=== PATIENT | male | born 2000 | race Caucasian/White ===

== ENCOUNTER 2021-05-14 10:55 | Emergency (ER) | payer OTHER, SELFPAY ==
[2021-05-14 11:16] VITALS: BP 130/80; PULSE 85; RESP 18; TEMP 37.1; O2SAT 98
--- NOTE | 2021-05-14 11:29 | ED.URI ---
HPI - URI/Sore Throat General Chief Complaint: Upper Respiratory Infection Stated Complaint: sorethroat,runny nose Time Seen by Provider: 05/14/21 11:29 Source: patient and RN notes reviewed Mode of arrival: ambulatory Limitations: no limitations History of Present Illness HPI Narrative: Patrick is a 20-year-old male patient who ambulated into the [facility] accompanied by his mother. Patient has a 3-day history of sore throat, runny nose, and chills. Patient has been vaccinated for Covid. Patient denies any exposure but does state he goes out frequently without a mask. Mother states he has had a fever at home. MD elicited complaint: sore throat Related Data Allergies Allergy/AdvReac Type Severity Reaction Status Date / Time No Known Allergies Allergy Verified 05/14/21 11:44 Review of Systems Review of Systems: CONSTITUTIONAL: Denies body aches, fever, +chills, + sweats. EYES: Denies visual changes, redness, or discharge. ENT: Denies rhinorrhea,+ congestion, +sore throat, or otalgia. CARDIOVASCULAR: Denies chest pain, palpitations, or edema. RESPIRATORY: Denies cough or dyspnea. GASTROINTESTINAL: Denies abdominal pain, nausea, vomiting, or diarrhea. GENITOURINARY: Denies dysuria or hematuria. SKIN: Denies rash, itching, or wounds. MUSCULOSKELETAL: Denies back pain, joint pain, or myalgia. NEUROLOGIC: Denies headache, numbness, tingling, or weakness. PSYCH: Denies depression or anxiety. All systems reviewed & are unremarkable except as noted in HPI and below PMFSH Comments At time of signature, I have reviewed and agree with nursing past medical, surgical, social and family history unless otherwise noted. Please see nursing chart for further information. There is no relevant family history pertinent to the presenting complaint Exam Narrative: GENERAL: Well-appearing, well-nourished, and in no acute distress. HEAD: Normocephalic, atraumatic. EYES: EOMI. No redness or drainage. Conjunctivae normal. ENT: Mucous membranes pink and moist. Nares clear. No rhinorrhea. Bilateral tympanic membranes are dull with moderate bulging. Posterior pharynx is erythemic with moderate amount of edema. Tonsils are 4+. Without exudate. Uvula midline. NECK: Normal AROM. Supple. bilateral anterior cervical lymphadenopathy. CHEST: No respiratory distress. Clear to auscultation. MUSCULOSKELETAL: No bony tenderness. EXTREMITIES: Normal range of motion. No edema. SKIN: Warm, dry, no rash. Capillary refill normal. Normal skin turgor. NEURO: No focal deficits. Alert and oriented x3. Gait steady. PSYCH: Normal affect. No signs of depression or anxiety. Course Vital Signs Vital signs: Vital Signs Temperature 37.1 C 05/14/21 11:16 Pulse Rate 85 05/14/21 11:16 Respiratory Rate 18 05/14/21 11:16 Blood Pressure 130/80 05/14/21 11:16 Pulse Oximetry 98 05/14/21 11:16 Temperature 37.1 C 05/14/21 11:16 Pulse Rate 85 05/14/21 11:16 Respiratory Rate 18 05/14/21 11:16 Blood Pressure 130/80 05/14/21 11:16 Pulse Oximetry 98 05/14/21 11:16 Reviewed. Pt has been instructed to follow up with his PCP regarding his elevated blood pressure today. MDM - URI/Sore Throat MDM Narrative Medical decision making narrative: Patient has sore throat, chills, runny nose. Patient will be evaluated for strep and Covid. Differential Diagnosis Differential diagnosis: Likely upper respiratory infection, otitis media, sinusitis, viral infection and bronchitis Medical Records Attestation: I reviewed the patient's medical records. Lab Data Attestation: I reviewed the patient's lab results. Labs: Strep Screen Presumptive Negative *(Reference Range: Negative)* Critical Care Time Critical Care Time Critical Care Time: No Discharge Plan Discharge Clinical Impression: Pharyngitis Qualifiers: Pharyngitis/tonsillitis etiology: unspecified etiology Qualified Code(s
== END 2021-05-14 12:11 | disposition home or self-care (01) ==
PROVIDERS: Emergency Provider Nurse Practitioner Family; PCP Pediatrics
DX: J02.9 Acute pharyngitis, unspecified (principal)
CPT/HCPCS: 87081; 87426; 87880; 99213; C9803; G0463

== ENCOUNTER 2021-07-03 12:02 | Emergency (ER) | payer OTHER, SELFPAY ==
[2021-07-03 13:34] VITALS: BP 130/74; PULSE 105; RESP 18; TEMP 37.3; O2SAT 100
--- NOTE | 2021-07-03 15:12 | ED.URI ---
HPI - URI/Sore Throat General Chief Complaint: Upper Respiratory Infection Stated Complaint: headache,cough Time Seen by Provider: 07/03/21 14:57 Source: patient and RN notes reviewed Mode of arrival: ambulatory Limitations: no limitations History of Present Illness HPI Narrative: Patient presents today complaining of sore throat, fever up to 100, chills, body aches, headache since yesterday. Currently rates his pain 4/10 and has tried no medication for symptoms prior to arrival. MD elicited complaint: fever and sore throat Related Data Home Medications Medication Instructions Recorded Confirmed aluminum chloride [Drysol 1 TOPICAL DIRECTED 07/03/21 Dab-O-Matic] Allergies Allergy/AdvReac Type Severity Reaction Status Date / Time No Known Allergies Allergy Verified 07/03/21 14:39 Review of Systems Review of Systems: CONSTITUTIONAL: Denies sweats.+ Body aches, fever, chills EYES: Denies visual changes, redness, or discharge. ENT: Denies rhinorrhea, congestion, or otalgia.+ Sore throat CARDIOVASCULAR: Denies chest pain, palpitations, or edema. RESPIRATORY: Denies cough or dyspnea. GASTROINTESTINAL: Denies abdominal pain, nausea, vomiting, or diarrhea. GENITOURINARY: Denies dysuria or hematuria. SKIN: Denies rash, itching, or wounds. MUSCULOSKELETAL: Denies back pain, joint pain, or myalgia. NEUROLOGIC: Denies numbness, tingling, or weakness.+ Headache PSYCH: Denies depression or anxiety. PMFSH Comments At time of signature, I have reviewed and agree with nursing past medical, surgical, social and family history unless otherwise noted. Please see nursing chart for further information. There is no relevant family history pertinent to the presenting complaint Exam Narrative: GENERAL: Well-appearing, well-nourished, and in no acute distress. HEAD: Normocephalic, atraumatic. EYES: EOMI. No redness or drainage. Conjunctivae normal. ENT: Mucous membranes pink and moist. Nares clear. No rhinorrhea. TMs normal bilaterally. Throat normal. Uvula midline. NECK: Normal AROM. Supple. No lymphadenopathy. CHEST: No respiratory distress. Clear to auscultation. HEART: Regular rate and rhythm. No murmur appreciated. Normal peripheral pulses. EXTREMITIES: Normal range of motion. No edema. SKIN: Warm, dry, no rash. Capillary refill normal. Normal skin turgor. NEURO: No focal deficits. Alert and oriented x3. Gait steady. PSYCH: Normal affect. No signs of depression or anxiety. Course Course Level of Care: Express Care Visit Vital Signs Vital signs: Vital Signs Temperature 99.2 F 07/03/21 13:34 Pulse Rate 105 H 07/03/21 13:34 Respiratory Rate 18 07/03/21 13:34 Blood Pressure 130/74 07/03/21 13:34 Pulse Oximetry 100 07/03/21 13:34 Temperature 99.2 F 07/03/21 13:34 Pulse Rate 105 H 07/03/21 13:34 Respiratory Rate 18 07/03/21 13:34 Blood Pressure 130/74 07/03/21 13:34 Pulse Oximetry 100 07/03/21 13:34 Reviewed. Pt has been instructed to follow up with his PCP regarding his elevated blood pressure today. MDM - URI/Sore Throat Differential Diagnosis Differential diagnosis: Likely upper respiratory infection, viral infection, influenza, pharyngitis and other (Strep throat, COVID-19) Lab Data Attestation: I reviewed the patient's lab results. Labs: Influenza A Screen Negative Reference Range: Negative Influenza B Screen Negative Reference Range: Negative Strep Screen Presumptive Negative *(Reference Range: Negative)* Critical Care Time Critical Care Time Critical Care Time: No Discharge Plan Discharge Clinical Impression: Viral illness Patient Disposition: Home, Self-Care Condition: Stable Instructions: Viral Syndrome (ED) Additional Instructions: Your influenza swab and rapid str
== END 2021-07-03 15:24 | disposition home or self-care (01) ==
PROVIDERS: Emergency Provider Nurse Practitioner; PCP Internal Medicine
DX: B34.9 Viral infection, unspecified (principal); Z20.822 Contact with and (suspected) exposure to COVID-19
CPT/HCPCS: 87081; 87804; 87880; 99213; G0463

== ENCOUNTER 2023-02-04 16:53 | Emergency (ER) | payer OTHER, SELFPAY ==
--- NOTE | 2023-02-04 16:58 | ED.SKABFB ---
HPI - Skin/Abscess/Foreign Bdy General Chief complaint: Skin/Abscess/Foreign Body Stated complaint: Poison Gretchen Time Seen by Provider: 02/04/23 16:58 Source: patient Mode of arrival: ambulatory Limitations: no limitations History of Present Illness HPI narrative: Patrick is a 22-year-old male patient presenting to the clinic today with complaints of possible poison gretchen. He reports he developed this rash approximately 1 week ago. He works outside for waste water management. He is concerned that it may be poison gretchen. Reports that the rash is very itchy. Rash is on his bilateral lower extremities, chest wall, left arm, and in the genital area Related Data Home Medications Medication Instructions Recorded Confirmed aluminum chloride 20 % topical 1 applic topical DIRECTED 07/03/21 02/04/23 solution (Drysol Dab-O-Matic) Allergies Allergy/AdvReac Type Severity Reaction Status Date / Time No Known Allergies Allergy Verified 02/04/23 17:21 Review of Systems Review of Systems: Pertinent positives per HPI. Patient denies any fever, chills, rash, headache, visual changes, dizziness, cough, runny nose, sore throat, shortness of breath, chest pain, palpitations, nausea, vomiting, diarrhea, constipation, abdominal pain, or any urinary issues. PMFSH Comments At the time of my signature, I reviewed and agree with the nursing past medical, surgical, social, and family history. There is no relevant family history pertinent to the patient complaint. Exam Narrative: General: Well-developed, well nourished, in no apparent distress Head: Normocephalic, atraumatic. Cardio: Regular rate and rhythm, s1 and s2 normal, no murmur appreciated. Resp: Clear to auscultation bilaterally, no rhonchi, rales, wheezing or rubs. Integumentary: [place], warm, and dry, intact without lesion, red, raised, blistering, itchy rash to the extremities, left arm, genital area, and left chest wall Course Course Emergency Course: Portions of this record may have been created with voice recognition software. Level of Care: Express Care Visit Vital Signs Vital signs: Vital signs reviewed MDM - Skin/Abscess/Foreign Bdy MDM Narrative Medical decision making narrative: At the time of visit patient is resting comfortably on exam table. I suspect patient has poison gretchen dermatitis. Prescription for prednisone and triamcinolone cream was sent to pharmacy. Dexamethasone 10 mg IM was given in clinic today. Patient tolerated injection very well. Supportive measures were discussed with the patient he voiced understanding discharge instructions and agrees to treatment plan. Differential Diagnosis Differential diagnosis: Likely abscess of skin or subcutaneous tissue, viral exanthem, urticaria, allergic reaction to drug, cellulitis, eczema, insect bites, impetigo and contact dermatitis Discharge Plan Discharge Clinical Impression: Allergic contact dermatitis due to plant Patient Disposition: Home, Self-Care Condition: Stable Instructions: Antibiotic Form, Poison Gretchen (ED), Cold Compress or Soak (ED) Additional Instructions: Dexamethasone 10 mg IM given in the clinic today Apply triamcinolone cream as directed Take prednisone as directed Avoid hot showers May apply calamine lotion to rash Avoid scratching and this causes rash to spread May take benadryl 25-50mg every 6 hours as needed for itching. Follow up with your PCP in 3-5 days if symptoms persist or sooner if they worsen Go to the Emergency Room if symptoms worsen- fever, rash spreading with treatment, shortness of breath, tongue swelling, drooling, or chest pain Prescriptions: New prednisone 10 mg tablet 10 mg PO DAILY Qty: 30 0RF Rx Instructions: 60mg po daily on day 1, 40mg po daily on days 2-4, 30mg po daily on days 5-6, 20mg po daily on days 7-8, 10mg po daily on days 9-10 triamcinolone acetonide 0.1 % cream 1 applic topical BID 7 Days Qty: 3
[2023-02-04 17:17] VITALS: BP 135/91; PULSE 78; RESP 16; TEMP 36.8; O2SAT 100
== END 2023-02-04 17:35 | disposition home or self-care (01) ==
PROVIDERS: Emergency Provider Nurse Practitioner Family; PCP Internal Medicine
DX: L23.7 Allergic contact dermatitis due to plants, except food (principal)
CPT/HCPCS: 96372; 99213; G0463; J1100

== ENCOUNTER 2023-12-08 10:40 | Emergency (ER) | payer OTHER, SELFPAY ==
[2023-12-08] VITALS (18 sets, daily range): BP systolic 123–149; BP diastolic 64–92; PULSE 80–132; RESP 11–22; TEMP 37.3–39.4; O2SAT 92–100
--- NOTE | ~2023-12-08 | XR_ITS ---
EXAMINATION: XR chest 2V 12/08/2023 11:41 INDICATION: Fever PROCEDURE: 2 view chest COMPARISON: No prior studies for comparison. FINDINGS: The lungs are clear. The cardiomediastinal silhouette is within normal limits. There are no pleural effusions. There is no pneumothorax suspected. The lungs are hyperinflated which is consistent with, but not diagnostic of chronic obstructive pulmo nary disease. IMPRESSION: 1: NO ACUTE CARDIOPULMONARY DISEASE. Reviewed, dictated and finalized at location B.
--- NOTE | 2023-12-08 11:01 | ECG_ITS ---
[facility] [address] Test Date: 2023-12-08 Pat Name: Patrick Rose Department: Room: Gender: Integrity Analyst: [id number] : 2000 Requested By: Feliciano Arechiga Order Number: [id number] Jaquan MD: Keyur Dean M.D. Measurements Intervals [place] Rate: 104 P: 34 IN: 147 QRS: 17 QRSD: 105 T: 2 QT: 316 QTc: 417 Interpretive Statements SINUS TACHYCARDIA EARLY REPOLARIZATION ABNORMAL RHYTHM ECG No previous ECG available for comparison Electronically Signed On 12-09-2023 07:59:31 CDT by Keyur Dean M.D.
[2023-12-08] MEDS: ACETAMINOPHEN 500 MG TABLET 1000 MG PO (11:27)
[2023-12-08] MEDS: SODIUM CHLORIDE 0.9% IV 3,000 ML 999 ML IV CONT (11:29)
[2023-12-08] MEDS: KETOROLAC 15 MG/ML VIAL (*BKC) IV PUSH (11:29)
[2023-12-08 11:32] LABS: Basophils Percent Auto 0.4 % (0.2-1.2); Hematocrit 39.8 % (42.0-52.0); Hemoglobin 14.4 g/dL (14.0-18.0); Immature Granulocyte Absolute 0.03 K/mm3 (0.00-0.031); Immature Granulocyte Percent A 0.4 % (0-0.5); Lymphocytes Absolute Auto 0.49 K/mm3 (0.9-3.2); Mean Corpuscular HGB Conc 36.2 g/dl (32-36); Mean Corpuscular Hemoglobin 29.9 pg (26-34); Mean Corpuscular Volume 82.7 fl (80-100); Mean Platelet Volume 10.8 fl (7.4-10.4); Monocytes Absolute Auto 0.5 K/mm3 (0.1-0.6); Monocytes Percent Auto 6.3 % (2.6-8.5); Neutrophils Absolute Auto 7.1 K/mm3 (1.3-6.7); Neutrophils Percent Auto 86.9 % (45.5-73.1); Platelet Count Result 157 k/mm3 (150-375); Red Blood Count 4.81 M/mm3 (4.6-6.20); Red Cell Distribution Width 12.9 % (11.5-14.5); White Blood Count 8.2 K/mm3 (4.5-10.0)
[2023-12-08 11:43] LABS: INR 1.1; Lactic Acid Reflex 3.2 mmol/L (0.7-2.0)
[2023-12-08] MEDS: ONDANSETRON INJ 4 MG/2 ML VIAL IV PUSH (11:43)
[2023-12-08 11:44] LABS: Partial Thromboplastin Time 31.2 Seconds (22.3-36.8)
[2023-12-08 12:00] LABS: Alanine Aminotransferase 62 U/L (6-50); Albumin Level 4.8 g/dL (3.5-5.1); Alkaline Phosphatase 59 U/L (38-126); Anion Gap 11 mmol/L (4-12); Aspartate Amino Transferase 67 U/L (17-59); Bilirubin,Total 3.1 mg/dL (0.2-1.3); Blood Urea Nitrogen 11 mg/dL (9-20); Calcium 9.7 mg/dL (8.4-10.2); Carbon Dioxide 20 mmol/L (22-30); Chloride 101 mmol/L (98-107); Estimated CRCL calculation 129 ml/min; Estimated Glomerular Filt Rate > 60; Glucose 121 mg/dL (65-110); Lipase 31 U/L (23-300); Potassium 3.8 mmol/L (3.4-5.0); Sodium 132 mmol/L (137-145)
[2023-12-08 12:03] LABS: CRP 15.6 mg/dL (<1.0)
[2023-12-08 12:08] LABS: Influenza A QL RT-PCR Negative (Negative); Influenza B QL RT-PCR Negative (Negative); RSV RNA, RT-PCR Negative (Negative); SARS-CoV-2 RNA PCR Negative (Negative)
[2023-12-08 12:28] LABS: Appearance Urine Clear (Clear); Bacteria Urine None Seen /hpf; Bilirubin Urine 1+ (Negative); Blood Urine Negative (Negative); Color Urine Dark Yellow (Yellow); Glucose Urine UA Negative (Negative); Ketones Urine 3+ mg/dL (Negative); Leukocyte Esterase Ur Trace LEU/UL (Negative); Nitrate Urine Negative (Negative); Non Pathogenic Casts 0-2; Protein Urine 3+ mg/dL (Negative); RBC Urine 0-2 /hpf (0-2); Squamous Epithelial Cell Urine None Seen /hpf (Few); WBC Urine 0-5 /hpf (0-3); pH Urine >=9.0 (5.0-9.0)
[2023-12-08 12:33] LABS: Specific Grav Ur 1.031 (1.001-1.035)
[2023-12-08 12:35] LABS: Add Urine Microscopic? YES
[2023-12-08 13:09] LABS: Lactic Acid Reflex 1.2 mmol/L (0.7-2.0)
--- NOTE | 2023-12-08 14:06 | ED.GENADULT ---
HPI - General Adult General Chief complaint: Fever Stated complaint: fever Time Seen by Provider: 12/08/23 11:15 History of Present Illness HPI narrative: This is a 23-year-old male presenting ED with chief complaint of flu-like symptoms for 3 days. Patient has been having fevers chills nausea vomiting diarrhea and body aches. he has not been eating food but has been tolerating liquid. He denies chest pain difficulty breathing or abdominal pain. No urinary symptoms. Been taking Tylenol intermittently for symptoms. Related Data Home Medications Medication Instructions Recorded Confirmed aluminum chloride 20 % topical 1 applic topical DIRECTED 07/03/21 02/04/23 solution (Drysol Dab-O-Matic) Allergies Allergy/AdvReac Type Severity Reaction Status Date / Time No Known Allergies Allergy Verified 12/08/23 11:00 Exam Narrative: APPEARANCE: Patient appears uncomfortable Head: atraumatic. no erythema of the posterior oropharynx EYES: EOMI, NOSE: Atraumatic NECK: Trachea midline RESPIRATORY: No increased rate of breathing clear auscultation CARDIOVASCULAR: RRR, soft nontender ABDOMINAL: Non-distended MUSCULOSKELETAl: No obvious deformities NEURO: Alert. Moving 4/4 extremities SKIN:: Warm, dry. Normal color PSYCHIATRIC: Normal affect Course Vital Signs Vital signs: Vital Signs Temperature 102.1 F H 12/08/23 10:58 Pulse Rate 132 H 12/08/23 10:58 Respiratory Rate 18 12/08/23 10:58 Blood Pressure 134/92 H 12/08/23 10:58 Pulse Oximetry 100 12/08/23 10:58 Temperature 99.6 F 12/08/23 12:31 Pulse Rate 85 12/08/23 12:31 Respiratory Rate 11 L 12/08/23 12:31 Blood Pressure 148/71 H 12/08/23 12:31 Pulse Oximetry 97 12/08/23 12:31 Medical Decision Making [facility] Narrative Medical decision making narrative: -Course: 21-year-old male presenting with flu-like symptoms. On arrival is tachycardic and febrile. Given fluid resuscitation and NSAIDs with normalization of vital signs. Patient's workup showed evidence of dehydration with an initially elevated back lactic. This improved with fluid resuscitation. Infectious workup was negative. No findings on physical exam such as abdominal tenderness or lung findings. Patient likely has a viral syndrome. On re-evaluation vital signs are normal. He is tolerating p.o. Patient states he feels much better.. He is comfortable being discharged home on a trial of Motrin Tylenol. Given strict return precautions and primary care follow-up. -DDX includes but is not limited to: viral syndrome, strep throat, mono, pneumonia, UTI, abdominal allergy -Independent interpretation of studies: white count 8.2 metabolic panel showed minor abnormalities. Initial lactic 3.2 but after resuscitation improved to 1.2 Very minor elevations of liver enzymes but no right upper quadrant tenderness. urine not indicative infection. chest x-ray negative Independent EKG interpretation: Rhythm [sinus], Rate [104], [place] -[normal], [place] -[normal], QRS [narrow], QTC [normal], T waves -[negative for concerning inversions], ST Segments - [Negative for concerning elevations] Final interpretations: sinus tach nonspecific T-wave changes -Interventions: 3 L normal saline, Toradol, Tylenol -Shared decision making / Disposition: discharge -RX Motrin Tylenol Vital Signs Vital Signs: Vital Signs Temperature 102.1 F H 12/08/23 10:58 Pulse Rate 132 H 12/08/23 10:58 Respiratory Rate 18 12/08/23 10:58 Blood Pressure 134/92 H 12/08/23 10:58 Pulse Oximetry 100 12/08/23 10:58 Temperature 99.6 F 12/08/23 12:31 Pulse Rate 85 12/08/23 12:31 Respiratory Rate 11 L 12/08/23 12:31 Blood Pressure 148/71 H 12/08/23 12:31 Pulse Oximetry 97 12/08/23 12:31 Lab Data 12/08/23 11:23 12/08/23 11:23 Labs: Lab Results 12/08/23 12/08/23 12/08/23 Range/Units 11:23 12:13 12:54 WBC 8.2 (4.5-10.0) K/mm3 R
[2023-12-08 14:30] LABS: Reflex Lactic Acid Yes or No Add Lactic
== END 2023-12-08 15:05 | disposition home or self-care (01) ==
PROVIDERS: Emergency Medicine; Emergency Provider Emergency Medicine; PCP Internal Medicine
DX: B34.9 Viral infection, unspecified (principal); Z20.822 Contact with and (suspected) exposure to COVID-19
CPT/HCPCS: 36415; 71046; 80053; 81001; 83605; 83690; 85025; 85610; 85730; 86140; 87040; 87637; 93005; 96361; 96374; 96375; 99284; A9270; J1885; J2405; J7030

== ENCOUNTER 2025-02-24 16:57 | Emergency (ER) | payer OTHER, SELFPAY ==
--- NOTE | 2025-02-24 16:58 | ED.GENADULT ---
HPI - General Adult General Chief complaint: Skin/Abscess/Foreign Body Stated complaint: RASH Time Seen by Provider: 02/24/25 16:58 Source: patient Mode of arrival: ambulatory Limitations: no limitations History of Present Illness HPI narrative: Pt is a 24 y/o male presenting with c/o pruritic rash to L. popliteal fossa, upper chest wall. rash began after cutting down trees. 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 No similar rash among household members. NO additional complaints. Related Data Allergies Allergy/AdvReac Type Severity Reaction Status Date / Time No Known Allergies Allergy Verified 02/24/25 17:36 Review of Systems Review of Systems: CONSTITUTIONAL: Denies body aches, fever, chills, or sweats. EYES: Denies visual changes, redness, or discharge. ENT: Denies rhinorrhea, congestion, sore throat, or otalgia. CARDIOVASCULAR: Denies chest pain, palpitations, or edema. RESPIRATORY: Denies cough or dyspnea. GASTROINTESTINAL: Denies abdominal pain, nausea, vomiting, or diarrhea. GENITOURINARY: Denies dysuria or hematuria. MUSCULOSKELETAL: Denies back pain, joint pain, or myalgia. NEUROLOGIC: Denies headache, numbness, tingling, or weakness. PSYCH: Denies depression or anxiety. All systems reviewed & are unremarkable except as noted in HPI and below Exam Narrative: GENERAL: Well-appearing, well-nourished, and in no acute distress. HEAD: Normocephalic, atraumatic. EYES: EOMI. No redness or drainage. Conjunctivae normal. NECK: Normal AROM. Supple. CHEST: No respiratory distress. HEART: Regular rate MUSCULOSKELETAL: No bony tenderness. EXTREMITIES: Normal range of motion. No edema. SKIN: Warm, dry. Patchy, erythematous papular eruption with crusting noted to L. popliteal fossa; very mild erythematous, papular eruption noted to anterior aspect of upper chest, neck. NO evidence of secondary bacterial skin infection. Capillary refill normal. Normal skin turgor. NEURO: No focal deficits. Alert and oriented x3. Gait steady. PSYCH: Normal affect. No signs of depression or anxiety. Course Course Emergency Course: Discussed elevated blood pressure readings with patient and advised daily BP monitoring and f/u with PCP if persisting. Level of Care: Express Care Visit Vital Signs Vital signs: Vital Signs Temperature 98.6 F 02/24/25 17:13 Pulse Rate 75 02/24/25 17:13 Respiratory Rate 16 02/24/25 17:13 Blood Pressure 141/82 H 02/24/25 17:13 Pulse Oximetry 100 02/24/25 17:13 Temperature 98.6 F 02/24/25 17:13 Pulse Rate 75 02/24/25 17:13 Respiratory Rate 16 02/24/25 17:13 Blood Pressure 141/82 H 02/24/25 17:13 Pulse Oximetry 100 02/24/25 17:13 Medical Decision Making Vital Signs Vital Signs: Vital Signs Temperature 98.6 F 02/24/25 17:13 Pulse Rate 75 02/24/25 17:13 Respiratory Rate 16 02/24/25 17:13 Blood Pressure 141/82 H 02/24/25 17:13 Pulse Oximetry 100 02/24/25 17:13 Temperature 98.6 F 02/24/25 17:13 Pulse Rate 75 02/24/25 17:13 Respiratory Rate 16 02/24/25 17:13 Blood Pressure 141/82 H 02/24/25 17:13 Pulse Oximetry 100 02/24/25 17:13 Discharge Plan Discharge Clinical Impression: Elevated blood pressure reading in office without diagnosis of hypertension Contact dermatitis Qualifiers: Contact dermatitis type: allergic Contact dermatitis trigger: non-food plants Qualified Code(s): L23.7 - Allergic contact dermatitis due to plants, except food Patient Disposition: Home Condition: Stable Instructions: Antibiotic Form Additional Instructions: Go straight to ER should your symptoms become worse or should any new symptoms develop Patient Language: Bulgarian Prescriptions: New triamcinolone acetonide 0.025 % cream 1 applic topical BID Qty: 15 0RF Follow-up/Referrals: UNKNOWN,DOCTOR [Non-Staff] - 02/25/25 Time of Disposition: 17:49
[2025-02-24 17:13] VITALS: BP 141/82; PULSE 75; RESP 16; TEMP 37; O2SAT 100
== END 2025-02-24 17:52 | disposition home or self-care (01) ==
PROVIDERS: Emergency Provider Registered Nurse
DX: L23.7 Allergic contact dermatitis due to plants, except food (principal); R03.0 Elevated blood-pressure reading, without diagnosis of hypertension
CPT/HCPCS: 99213; G0463

== ENCOUNTER 2025-03-08 18:04 | Emergency (ER) | payer OTHER, SELFPAY ==
--- NOTE | ~2025-03-08 | XR_ITS ---
XR finger 4th RT min 2V 03/08/2025 18:38 Indication: Right fourth finger pain after trauma Procedure: 4 views right fourth finger Comparison: No prior studies for comparison. Findings: There is a comminuted minimally displaced tuft fracture fourth distal phalanx. Mild soft tissue swelling. No foreign bodies. No other fracture seen. Impression: 1: Comminuted minimally displaced fracture right fourth distal phalanx. Reviewed, dictated and finalized at location O. Impression: 1: Comminuted minimally displaced fracture right fourth distal phalanx.
[2025-03-08 18:16] VITALS: BP 133/95; PULSE 86; RESP 16; TEMP 36.6; O2SAT 100
--- NOTE | 2025-03-08 18:29 | ED.WOUNDLAC ---
HPI - Wound/Laceration General Chief Complaint: Extremity Injury, Upper Stated Complaint: pinched finger in door Time Seen by Provider: 03/08/25 18:20 Source: patient, RN notes reviewed and old records reviewed Mode of arrival: ambulatory Limitations: no limitations History of Present Illness HPI narrative: 24-year-old male presents to the [facility] after closing his right 4th finger in a door. Subungual hematoma and laceration is noted. Patient believes Tdap might be up-to-date, unsure if under 5 years, nose it's more than 3. Bleeding is controlled Treatments prior to arrival: other (Bandage) Related Data Home Medications ?Medication ?Instructions ?Recorded ?Confirmed ?Last Taken ?Type allergy eye drops 03/08/25 Unknown History cetirizine 10 mg tablet (24Hour 10 mg PO DAILY 03/08/25 03/08/25 Unknown History Allergy) Allergies Allergy/AdvReac Type Severity Reaction Status Date / Time No Known Allergies Allergy Verified 03/08/25 18:17 Review of Systems Review of Systems: All systems reviewed & are unremarkable except as noted in HPI and below Constitutional: Constitutional: Reports no additional constitutional complaints Musculoskeletal: Musculoskeletal: Reports no additional musculoskeletal complaints Integumentary/Breasts: Skin/Breast: Reports as per HPI PMFSH Comments At the time of my signature, I reviewed and agree with the nursing past medical, surgical, social, and family history. There is no relevant family history pertinent to the patient complaint. Exam Const: General: cooperative, healthy appearing, comfortable, no acute distress, well developed, alert and well nourished Nutritional Appearance: well nourished Orientation/consciousness: patient oriented x3 Limitations: no limitations HENMT: Head: normal to inspection Eyes: General: appearance normal, both eyes and all related structures Alignment and Position: alignment normal Neck: Neck: normal visual inspection, full ROM, no lymphadenopathy and no meningeal signs Chest: Chest palpation & inspection: normal inspection of the chest Resp: Effort & Inspection: normal respiratory effort and able to speak in complete sentences Cardio: Rate: regular rate Skin: General skin exam: normal color and no rashes or lesions noted Other: Right 4th finger approximately 2 cm laceration subungual hematoma. Full range of motion of the D IP and PIP Sensation intact Neuro: General: patient oriented x3, gait normal, moves all extremities and no meningeal signs Cognition (Neuro): normal cognition Speech: normal speech Gait exam (Neuro): Normal gait present Extrem: General: normal to inspection, full ROM, capillary refill normal and normal gait Psych: Appearance: grossly normal and well kempt Mental Status: mental status grossly normal Speech and movement: Normal speech and movement present and Clear speech present Affect: normal affect Attitude: cooperative Course Course Level of Care: Express Care Visit Vital Signs Vital signs: Vital Signs Temperature 97.8 F 03/08/25 18:16 Pulse Rate 86 03/08/25 18:16 Respiratory Rate 16 03/08/25 18:16 Blood Pressure 133/95 H 03/08/25 18:16 Pulse Oximetry 100 03/08/25 18:16 Oxygen Delivery Room Air 03/08/25 18:16 Temperature 97.8 F 03/08/25 18:16 Pulse Rate 86 03/08/25 18:16 Respiratory Rate 16 03/08/25 18:16 Blood Pressure 133/95 H 03/08/25 18:16 Pulse Oximetry 100 03/08/25 18:16 Oxygen Delivery Room Air 03/08/25 18:16 Reviewed Procedures Laceration Laceration 1: Date: 03/08/25 Time: 19:15 Site: hand Side (If applicable): right Size (cm): 2 Description: linear and flap Depth: simple, single layer Local Anesthetic: lidocaine 1% (digital block) ====== Skin Level ====== ====== Subcutaneous Layer ====== ====== Muscle Layer ====== ====== Tendon Layer ====== MDM - Wound/Laceration MDM Narrative Medical decision making narrative: Patient sitting in exam room. Patient is nontoxic, vitals stable. Patient presents after closing 4th finger right hand in a door. X-ray shows tuft fracture. Area cleaned. Updated tetanus. Three sutures placed Stressed the importance of taking the antibiotic and close follow-up with hand. Dr. Chan phone number given Discharge instructions reviewed with patient, as well as provided in writing per nursing staff. The instructions also include specific and strict return/GO TO THE ER as well as f/u information. All questions have been answered, and the patient deny any further questions with discharge and discharge plan. Some parts of this dictation were generated by voice recognition software and may contain typographical and/or grammatical inaccuracies. Differential Diagnosis Differential diagnosis: Likely laceration, abrasion, avulsion of skin and other (Fracture) Imaging Data Radiologist's impression: XR finger 4th RT min 2V 03/08/2025 18:38 Indication: Right fourth finger pain after trauma Procedure: 4 views right fourth finger Comparison: No prior studies for comparison. Findings: There is a comminuted minimally displaced tuft fracture fourth distal phalanx. Mild soft tissue swelling. No foreign bodies. No other fracture seen. Impression: 1: Comminuted minimally displaced fracture right fourth distal phalanx. Critical Care Time Critical Care Time Critical Care Time: No Discharge Plan Discharge Clinical Impression: Open fracture of tuft of distal phalanx of finger, Subungual hematoma of finger, Vaccine for [id number], combined Patient Disposition: Home Condition: Stable Instructions: Antibiotic Form, Finger Fracture (ED), Finger Laceration (ED) Additional Instructions: Take antibiotic as prescribed Rest, ice and elevate every 2-3 hours for 15-20 minutes Keep area clean and dry. Remove dressing tomorrow night, wash with soap warm soapy water, pat dry. When not at home keep it covered Try leaving open to air for 4-5 hours every evening[address] Dr. Cutler office for a follow-up appointment in 7-10 days for a finger checked, suture removal Patient Language: Bangladeshi Prescriptions: New amoxicillin-pot clavulanate 875-125 mg tablet 1 tablet PO Q12H Qty: 20 0RF No Action cetirizine [24Hour Allergy] 10 mg tablet 10 mg PO DAILY allergy eye drops triamcinolone acetonide 0.025 % cream 1 applic topical BID Qty: 15 0RF Follow-up/Referrals: Dorothea Chan MD [Physician, Plastic Surgery] - 1 Week Clinical Impression: Open fracture of tuft of distal phalanx of finger PHYSICIAN,AMBULANCE OFFICER [Primary Care Provider, Internal Medicine] Stand Alone Forms: Work/School Release IP Time of Disposition: 19:36
[2025-03-08] MEDS: LIDOCAINE 1% LOCAL INJ 2 ML AMPUL 6 ML INFILTRATE (18:42)
[2025-03-08] MEDS: TETANUS,DIPHTHERIA,AC PERTUSSIS ADULT (0.5 ML) BOOSTRIX IM (19:39)
== END 2025-03-08 19:50 | disposition home or self-care (01) ==
PROVIDERS: Emergency Provider Nurse Practitioner
DX: S62.614B Displaced fracture of proximal phalanx of right ring finger, initial encounter for open fracture (principal); W23.1XXA Caught, crushed, jammed, or pinched between stationary objects, initial encounter; S60.141A Contusion of right ring finger with damage to nail, initial encounter; Z23 Encounter for immunization
CPT/HCPCS: 12001; 73140; 90471; 90715; 99213; G0463; J2003

== ENCOUNTER 2025-05-05 08:49 | Emergency (ER) | payer OTHER, SELFPAY ==
--- NOTE | 2025-05-05 08:51 | ED.GENADULT ---
HPI - General Adult General Chief complaint: Upper Respiratory Infection Stated complaint: SORE THROAT Time Seen by Provider: 05/05/25 08:51 Source: patient Mode of arrival: ambulatory Limitations: no limitations History of Present Illness HPI narrative: patient is a 24-year-old male presenting with complaint of sore throat. Additional symptoms reported include chills, nocturnal cough. Tx initiated [employer] includes Dayquil, saltwater gargles. No known exposure to COVID, FLU,STREP,PNA. No additional complaints. Related Data Home Medications ?Medication ?Instructions ?Recorded ?Confirmed ?Last Taken ?Type No Home Medications 05/05/25 05/05/25 Unknown History Allergies Allergy/AdvReac Type Severity Reaction Status Date / Time No Known Allergies Allergy Verified 05/05/25 08:57 Review of Systems Review of Systems: CONSTITUTIONAL: Reports chills, Denies body aches, fever, or sweats. EYES: Denies visual changes, redness, or discharge. ENT: Reports sore throat, Denies rhinorrhea, congestion, or otalgia. CARDIOVASCULAR: Denies chest pain, palpitations, or edema. RESPIRATORY: Reports cough denies dyspnea. GASTROINTESTINAL: Denies abdominal pain, nausea, vomiting, or diarrhea. GENITOURINARY: Denies dysuria or hematuria. SKIN: Denies rash, itching, or wounds. MUSCULOSKELETAL: Denies back pain, joint pain, or myalgia. NEUROLOGIC: Denies headache, numbness, tingling, or weakness. PSYCH: Denies depression or anxiety. All systems reviewed & are unremarkable except as noted in HPI and below Exam Narrative: GENERAL: Well-appearing, well-nourished, and in no acute distress. HEAD: Normocephalic, atraumatic. EYES: EOMI. No redness or drainage. Conjunctivae normal. ENT: Mucous membranes pink and moist. Nares clear. No rhinorrhea. TMs normal bilaterally. Throat normal. Uvula midline. NECK: Normal AROM. Supple. No lymphadenopathy. CHEST: No respiratory distress. Clear to auscultation. HEART: Regular rate and rhythm. No murmur appreciated. Normal peripheral pulses. ABDOMEN: Soft, nontender, nondistended, normal active bowel sounds. MUSCULOSKELETAL: No bony tenderness. EXTREMITIES: Normal range of motion. No edema. SKIN: Warm, dry, no rash. Capillary refill normal. Normal skin turgor. NEURO: No focal deficits. Alert and oriented x3. Gait steady. PSYCH: Normal affect. No signs of depression or anxiety. Course Course Level of Care: Express Care Visit Vital Signs Vital signs: Vital Signs Temperature 97.5 F L 05/05/25 09:01 Pulse Rate 72 05/05/25 09:01 Respiratory Rate 18 05/05/25 09:01 Blood Pressure 145/91 H 05/05/25 09:01 Pulse Oximetry 99 05/05/25 09:01 Oxygen Delivery Room Air 05/05/25 09:01 Temperature 97.5 F L 05/05/25 09:01 Pulse Rate 72 05/05/25 09:01 Respiratory Rate 18 05/05/25 09:01 Blood Pressure 145/91 H 05/05/25 09:01 Pulse Oximetry 99 05/05/25 09:01 Oxygen Delivery Room Air 05/05/25 09:01 Medical Decision Making MDM Narrative Medical decision making narrative: Discussed elevated blood pressure readings with patient and advised daily BP monitoring and f/u with PCP if persisting. Vital Signs Vital Signs: Vital Signs Temperature 97.5 F L 05/05/25 09:01 Pulse Rate 72 05/05/25 09:01 Respiratory Rate 18 05/05/25 09:01 Blood Pressure 145/91 H 05/05/25 09:01 Pulse Oximetry 99 05/05/25 09:01 Oxygen Delivery Room Air 05/05/25 09:01 Temperature 97.5 F L 05/05/25 09:01 Pulse Rate 72 05/05/25 09:01 Respiratory Rate 18 05/05/25 09:01 Blood Pressure 145/91 H 05/05/25 09:01 Pulse Oximetry 99 05/05/25 09:01 Oxygen Delivery Room Air 05/05/25 09:01 Lab Data Lab results reviewed: Yes I reviewed the patient's lab results. Labs: Lab Results 05/05/25 Range/Units 08:55 POC Grp A Strep Screen Negative (Negative) Discharge Plan Discharge Clinical Impression: Elevated blood pressure reading in office without diagnosis of hypertension Upper respiratory infection Qualifiers: URI type: unspecified URI Qualified Code(s): J06.9 - Acute upper respiratory infection, unspecified Patient Disposition: Home Condition: Stable Instructions: Antibiotic Form, Upper Respiratory Infection (DC) Additional Instructions: Go straight to ER should your symptoms become worse or should any new symptoms develop Patient Language: Ukrainian Prescriptions: No Action No Home Medications Follow-up/Referrals: UNKNOWN,DOCTOR [Non-Staff] - 05/06/25 Time of Disposition: 09:02
[2025-05-05 09:01] VITALS: BP 145/91; PULSE 72; RESP 18; TEMP 36.4; O2SAT 99
[2025-05-05 09:15] LABS: EDSTREPNEGPOS1 Negative (Negative)
== END 2025-05-05 09:16 | disposition home or self-care (01) ==
PROVIDERS: Emergency Provider Registered Nurse
DX: R03.0 Elevated blood-pressure reading, without diagnosis of hypertension (principal); J06.9 Acute upper respiratory infection, unspecified
CPT/HCPCS: 87081; 87880; 99213; G0463